=== PATIENT | female | born 1970 | race Caucasian/White ===

== ENCOUNTER 2016-11-03 09:26 | Emergency (ER) | payer BC ==
[2016-11-03] MEDS ORDERED: ALBUTEROL SULFATE/IPRATROPIUM 3 ML NEBU IH ONE ×2 (09:31→09:35)
--- NOTE | 2016-11-03 09:47 | ERNOTE ---
Date of Service: 11/03/16 Time Seen by Provider: 11/03/16 09:36 Stated Complaint: ASTHMA Presenting Symptoms:: cough Source: patient Exam Limitations: no limitations Immunizations: IMMUNIZATION HX Immunizations Up to Date Yes History of Influenza Vaccine No Hx Pneumococcal Vaccination No Allergies/Adverse Reactions: Allergies Penicillins Allergy (Severe, Verified 11/03/16 09:35) Swelling of Throat Home Medications: HOME MEDICATIONS Albuterol Sulfate [Proair Hfa] 2 puff IH QID PRN 09/16/16 [Last Taken 09/18/16 09:30] Beclomethasone Dipropionate [Qvar] 17.4 gm IH BID 09/16/16 [Last Taken 09/17/16] Citalopram Hydrobromide [Citalopram HBr] 10 mg PO DAILY 09/16/16 [Last Taken ] Omeprazole 40 mg PO DAILY 09/16/16 [Last Taken 09/17/16] Albuterol Sulfate [Albuterol Sulfate 2.5 MG/0.5ML] 1 vial IH Q4H PRN #100 vial 11/03/16 [Last Taken Unknown] Prednisone 50 mg PO DAILY #6 tablet 11/03/16 [Last Taken Unknown] - History of Present Ilness Narrative: Patient presents with worsening asthma. Patient has a known history of asthma she has been having chest congestion for the past couple of days progressively getting worse. Her asthma now has gotten worse to a point that she is using her pro-air inhaler every 2 hours. She short of breath she's been coughing dry hacking cough. Next Denies any fever or denies any headache occasionally dizzy. Denies any chest pain at this time. No other sick contacts she is not been recently hospitalized for any acute asthmatic exacerbation. Her asthma is fairly well controlled. Until she gets an illness or an uri. Date (Duration): 11/01/16 Timing: getting worse Severity: moderate Associated Symptoms: Reports: cough, shortness of breath, wheezing, nasal congestion, dizziness. Denies: chest pain/soreness, earache, headache, sore throat, muscle aches, fever/chills Review of Systems - Review of Systems Constitutional: Absent: fever, chills, weakness, fatigue, malaise ENT: Absent: ear discharge, nose congestion, nasal drainage, sore throat Respiratory: Present: shortness of breath, cough, wheezing. Absent: orthopnea, stridor Cardiology: Absent: chest pain, palpitations, syncope Gastrointestinal/Abdominal: Absent: nausea, vomiting, diarrhea, constipation, abdominal pain All Other Systems: All systems neg except as marked - Patient's Past Medical History Patient History - Medical: Anxiety, Depression, GERD Patient History - Cardiac/Respiratory: Asthma Patient History - Cancer: No Hx of Cancer Patient History - Surgical Procedures: Appendectomy, Tubal Ligation, T & A Patient History - Other: None LMP (females 10-50): 1 month LMP (Calendar): 09/03/16 - Family History Brother Family History - Medical: Other Family History - Cardiac/Respiratory: No pertinent hx Father Family History - Medical: No pertinent hx Family History - Cardiac/Respiratory: Hypertension Mother Family History - Medical: , No pertinent hx Family History - Cardiac/Respiratory: No pertinent hx Daughter Family History - Medical: Other Family History - Cardiac/Respiratory: No pertinent hx Son Family History - Medical: Other Family History - Cardiac/Respiratory: No pertinent hx - Social History Living Situations: spouse Smoking Status: Never smoker Patient requests Smoking Cessation Consult: No Initiate information on Smoking Cessation: No Alcohol Use: occasionally Drug Use: none - Immunizations Immunizations Up to Date: Yes Hx Pneumococcal Vaccination: No History of Influenza Vaccine: No Physical Exam - Physical Exam General Appearance: Present: wd/wn, alert, no apparent distress Ears, Nose, Throat: Present: normal ENT inspection, hearing grossly normal, normal pharynx Neck: Present: normal inspection, nontender, supple, full range of motion Respiratory: Present: no respiratory distress, no accessory muscle use, chest nontender, wheezing - expiratory and inspiratory wheezing heard throughout the lung field Cardiovascular/Chest: Present: regular rate, rhythm, no murmur, normal peripheral pulses Gastrointestinal/Abdominal: Present: normal bowel sounds, nontender, nondistended, soft, no organomegaly Extremity Exam: Present: normal inspection, non-tender, no edema, normal range of motion Neurological Exam: Present: alert, oriented, normal mood/affect, no motor/ sensory deficits ED Progress - Results and Orders Patient's Lab Results:: I have reviewed the patient's lab results. - Vital Signs Patient's Vital Signs:: I have reviewed the patient's vital signs. Vital Signs: Vital Signs 11/03/16 09:29 Temperature 36.1 C L Pulse Rate 100 Respiratory 18 Rate Blood Pressure 123/59 O2 Sat by Pulse 96 Oximetry - X-Ray X-Ray #1 X-Ray: chest - no acute changes Interpretation: Reviewed by me - Progress/Reassessment Chief Complaint: Asthma Progress:: Improved Progress Note-Subjective: 11/03/16 12:11 doing well desires to go home, much improved. Discharged home with a nebulizer Some prednisone for the next few days Follow-up family doctor to 3 days - Transfer of Care Expected Disposition: Discharge Departure - Departure Clinical Impression: Asthma Qualifiers: Asthma severity: mild intermittent Asthma complication type: with acute exacerbation Qualified Code(s): J45.21 - Mild intermittent asthma with (acute) exacerbation Disposition: Home Follow Up Needed Condition: Good Instructions: Asthma, Adult, [id number], Asthma Attack Prevention Referrals: Josefnia Rice MD [Primary Care Provider] - Prescriptions: Albuterol Sulfate [Albuterol Sulfate 2.5 MG/0.5ML] 1 vial IH Q4H PRN #100 vial PRN Reason: Shortness Of Breath Prednisone 50 mg PO DAILY #6 tablet
[2016-11-03] MEDS ORDERED: METHYLPREDNISOLONE SOD SUCC/PF 40 MG/ML VIAL IM ONE (09:48)
[2016-11-03] MEDS ORDERED: ALPRAZolam 0.25 MG TABLET PO ONE (09:48)
[2016-11-03] MEDS ORDERED: METHYLPREDNISOLONE SOD SUCC/PF 40 MG/ML VIAL ONE (09:50)
[2016-11-03] MEDS ORDERED: ALPRAZolam 0.25 MG TABLET ONE (09:50)
[2016-11-03 10:04] LABS: Hematocrit 43.8 % (37.0-47.0); Hemoglobin 14.5 gm/dL (12.5-16.0); Mean Cell Volume 90.5 fl (78-100); Mean Corpuscular Hgb Conc 33.1 g/dl (32-36); Mean Platelet Volume 9.8 fl (6.0-9.5); Neutrophil # 3.8 K/mm3 (1.3-6.0); Neutrophil % 54.6 % (42-75.0); Platelet Count 279 K/mm3 (150-450); Red Blood Count 4.84 M/mm3 (4.2-5.4); Red Cell Distribution Width 12.6 % (11.5-14.0); White Blood Count 6.9 K/mm3 (4.0-10.5)
[2016-11-03 10:21] LABS: Anion Gap 9.5 mmol/L (6.8-13.8); BUN/Creatinine Ratio 9.4 (9.0-21.6); Bilirubin, Total 0.4 mg/dL (0.0-1.1); Calcium * 9.3 mg/dL (7.9-10.9); Carbon Dioxide 28.5 mmol/L (24-32.6); Total Protein 7.9 gm/dL (6.2-8.2)
[2016-11-03 12:22] VITALS: BP 107/58
== END 2016-11-03 12:25 | disposition home or self-care (01) ==
LOC: ER 09:26
DX: J45.21 Mild intermittent asthma with (acute) exacerbation (principal)